=== PATIENT | male | born 1955 | race Hispanic/Latino ===

== ENCOUNTER 2018-12-07 11:29 | Emergency (ER) | payer BC ==
[2018-12-07 11:40] VITALS: BP 145/89
--- NOTE | 2018-12-07 11:44 | Event Note ---
ED Screening Note Date of service: 12/07/18 Time: 11:40 ED Screening Note: 63 y o male presents with urinary symptoms x 2-3 days This initial assessment/diagnostic orders/clinical plan/treatment(s) is/are subject to change based on patients health status, clinical progression and re-assessment by fellow clinical providers in the ED. Further treatment and workup at subsequent clinical providers discretion. Patient/guardian urged not to elope from the ED as their condition may be serious if not clinically assessed and managed. Initial orders include: cbc,bmp, ua
[2018-12-07 12:10] LABS: Basophils % (Auto) 0.5 % (0.0-1.8); Eosinophils % (Auto) 0.2 % (0.0-4.3); Hematocrit 45.8 % (35.5-45.6); Hemoglobin 16.2 gm/dl (11.8-15.2); Lymphocytes # (Auto) 1.2 K/mm3 (1.2-5.4); Lymphocytes % (Auto) 14.1 % (13.4-35.0); Mean Corpuscular HGB Conc 35 % (32-34); Mean Corpuscular Volume 91 fl (84-94); Monocytes # (Auto) 1.1 K/mm3 (0.0-0.8); Monocytes % (Auto) 13.2 % (0.0-7.3); Platelet Count 272 K/mm3 (140-440); Red Blood Count 5.07 M/mm3 (3.65-5.03)
[2018-12-07 12:20] LABS: BUN/Creatinine Ratio 18; Blood Urea Nitrogen 11 mg/dL (9-20); Calcium 9.3 mg/dL (8.4-10.2); Hemolysis Index 6
[2018-12-07] MEDS ORDERED: TYLENOL PO ONE (12:37)
--- NOTE | 2018-12-07 12:41 | Emergency Department Report ---
ED Male HPI - General Chief complaint: Urogenital-Male Stated complaint: UTI/FEVER/BODY ACHE Time Seen by Provider: 12/07/18 11:39 Source: patient Mode of arrival: Ambulatory Limitations: No Limitations - History of Present Illness Initial comments: 63-year-old male [employer] employee presents to the hospital with complains of fever and dysuria. Patient had similar symptoms 2 weeks ago but symptoms resolved without treatment. Patient complains of dysuria, frequency, malodorous urine, and intermittent chills and fever. Patient denies cough, nausea, vomiting, back pain, abdominal pain, or gross hematuria. - Related Data Home Medications Medication Instructions Recorded Confirmed Last Taken metFORMIN [Glucophage] 500 mg PO BID 02/02/16 02/02/16 02/02/16 Previous Rx's Medication Instructions Recorded Last Taken Type Aspirin 81 mg PO QDAY #30 tablet 02/04/16 Unknown Rx Metoprolol [Lopressor TAB] 12.5 mg PO BID #60 tablet 02/04/16 Unknown Rx Nitrofurantoin [place]/M-Cryst 100 mg PO Q12HR #14 capsule 12/07/18 Unknown Rx [Macrobid CAP] Allergies Allergy/AdvReac Type Severity Reaction Status Date / Time No Known Allergies Allergy Verified 02/02/16 10:15 ED Review of Systems ROS: Stated complaint: UTI/FEVER/BODY ACHE Other details as noted in HPI Comment: All other systems reviewed and negative ED Past Medical Hx - Past Medical History Previous Medical History?: Yes Hx Congestive Heart Failure: No Hx Diabetes: Yes (PO meds) Hx Asthma: No Hx COPD: No Hx HIV: No Additional medical history: Heart palpitations "30 yrs ago" - Surgical History Past Surgical History?: No Additional Surgical History: tonsillectomy 1958 - Social History Smoking Status: Never Smoker - Medications Home Medications: Home Medications Medication Instructions Recorded Confirmed Last Taken Type metFORMIN [Glucophage] 500 mg PO BID 02/02/16 02/02/16 02/02/16 History Aspirin 81 mg PO QDAY #30 tablet 02/04/16 Unknown Rx Metoprolol [Lopressor TAB] 12.5 mg PO BID #60 tablet 02/04/16 Unknown Rx Nitrofurantoin [place]/M-Cryst 100 mg PO Q12HR #14 capsule 12/07/18 Unknown Rx [Macrobid CAP] ED Physical Exam - General Limitations: No Limitations - Other Other exam information: Normal: No acute distress Head: Atraumatic Eyes: Normal appearance ENT: Moist mucous membranes Neck: Normal appearance Chest: Clear to auscultation bilaterally, no wheezes, rales, crackles Cardiovascular: Regular rate and rhythm Abdomen: Soft, nontender, nondistended, no rebound or guarding, normal bowel sounds Back: Normal inspection , no CVA tenderness Extremity: Normal appearance, full range of motion Neuro: Alert and oriented 3, speech normal, no gross motor sensory deficit Psych: Appropriate Skin: No rash ED Course Vital Signs 12/07/18 12/07/18 11:37 12:37 Temperature 100.1 F H Pulse Rate 91 H Respiratory 16 Rate Blood Pressure 145/89 O2 Sat by Pulse 96 Oximetry ED Medical Decision Making - Lab Data Result diagrams: 12/07/18 11:53 12/07/18 11:53 Lab Results 12/07/18 12/07/18 12/07/18 Range/Units 11:53 11:53 Unknown WBC 8.4 (4.5-11.0) K/mm3 RBC 5.07 H (3.65-5.03) M/mm3 Hgb 16.2 H (11.8-15.2) gm/dl Hct 45.8 H (35.5-45.6) % MCV 91 (84-94) fl MCH 32 (28-32) pg MCHC 35 H (32-34) % RDW 13.0 L (13.2-15.2) % Plt Count 272 (140-440) K/mm3 Lymph % (Auto) 14.1 (13.4-35.0) % [place] % (Auto) 13.2 H (0.0-7.3) % Eos % (Auto) 0.2 (0.0-4.3) % Baso % (Auto) 0.5 (0.0-1.8) % Lymph # 1.2 (1.2-5.4) K/mm3 [place] # 1.1 H (0.0-0.8) K/mm3 Eos # 0.0 (0.0-0.4) K/mm3 Baso # 0.0 (0.0-0.1) K/mm3 Seg Neutrophils % 72.0 H (40.0-70.0) % Seg Neutrophils # 6.1 (1.8-7.7) K/mm3 Sodium 130 L (137-145) mmol/L Potassium 4.3 (3.6-5.0) mmol/L Chloride 89.4 L (98-107) mmol/L Carbon Dioxide 27 (22-30) mmol/L Anion Gap 18 mmol/L BUN 11 (9-20) mg/dL Creatinine 0.6 L (0.8-1.5) mg/dL Estimated GFR > 60 ml/min BUN/Creatinine Ratio 18 % Glucose 275 H (75-100) mg/dL Calcium 9.3 (8.4-10.2) mg/dL Urine Color Yellow (Yellow) Urine Turbidity Turbid (Clear) Urine pH 5.0 (5.0-7.0) Ur Specific [place] 1.018 (1.003-1.030) Urine Protein 100 mg/dl (Negative) mg/dL Urine Glucose (UA) 150 (Negative) mg/dL Urine Ketones 20 (Negative) mg/dL Urine Blood Sm (Negative) Urine Nitrite Neg (Negative) Urine Bilirubin Neg (Negative) Urine Urobilinogen 2.0 (<2.0) mg/dL Ur Leukocyte Esterase Mod (Negative) Urine WBC (Auto) > 182.0 H (0.0-6.0) /HPF Urine RBC (Auto) 7.0 (0.0-6.0) /HPF Urine WBC Clumps 3+ /HPF Urine Mucus 1+ /HPF - Medical Decision Making + uti no signs of sepsis tolerating po macrobid and tylenol given in ED f/u advised - Differential Diagnosis UTI, pyelonephritis, viral syndrome Critical Care Time: No Critical care attestation.: If time is entered above; I have spent that time in minutes in the direct care of this critically ill patient, excluding procedure time. ED Disposition Clinical Impression: UTI (urinary tract infection) Disposition: DC-01 TO HOME OR SELFCARE Is pt being admited?: No Does the pt Need Aspirin: No Condition: Stable Instructions: Urinary Tract Infection in Men (ED) Additional Instructions: Take your medications as prescribed. Follow-up with your doctor or the clinic/doctor provided. Return if symptoms worsen. Take Motrin or Tylenol as needed for fever. Prescriptions: Nitrofurantoin [place]/M-Cryst [Macrobid CAP] 100 mg PO Q12HR #14 capsule Referrals: JESS VARELA MD [Primary Care Provider] - 3-5 Days Time of Disposition: 13:36
[2018-12-07 12:50] LABS: Bilirubin,Urine NEG (Negative); Blood,Urine SM (Negative); Color,Urine Yellow (Yellow); Mucus,Urine 1+ /HPF
[2018-12-07 12:52] LABS: WBC,Urine > 182.0 /HPF (0.0-6.0)
[2018-12-07] MEDS ORDERED: ROCEPHIN IM ONE (13:32)
[2018-12-07] MEDS ORDERED: XYLOCAINE 1% MPF 5 mL INFILTRATI ONE (13:32)
[2018-12-07] MEDS ORDERED: MACROBID PO ONE (13:33)
== END 2018-12-07 14:23 | disposition home or self-care (01) ==
LOC: ED 11:29
DX: N39.0 Urinary tract infection, site not specified (principal)
CPT/HCPCS: 36415; 80048; 81001; 85025

== ENCOUNTER 2019-05-20 14:06 | Outpatient (CLI) | payer BC ==
[2019-05-20 14:29] LABS: Basophils % (Auto) 0.4 % (0.0-1.8); Eosinophils % (Auto) 0.8 % (0.0-4.3); Hematocrit 44.5 % (35.5-45.6); Hemoglobin 15.5 gm/dl (11.8-15.2); Lymphocytes # (Auto) 1.7 K/mm3 (1.2-5.4); Lymphocytes % (Auto) 29.9 % (13.4-35.0); Mean Corpuscular HGB Conc 35 % (32-34); Mean Corpuscular Volume 92 fl (84-94); Monocytes # (Auto) 0.5 K/mm3 (0.0-0.8); Monocytes % (Auto) 7.9 % (0.0-7.3); Platelet Count 217 K/mm3 (140-440); Red Blood Count 4.86 M/mm3 (3.65-5.03); Red Cell Distribution Width 13.8 % (13.2-15.2)
[2019-05-20 14:40] LABS: Creatinine,Urine 144.8 mg/dL (0.1-20.0); Microalbumin/Creatinine Ratio 13.8 ug/mg
[2019-05-20 14:53] LABS: Alanine Aminotransferase 21 units/L (7-56); Albumin 4.2 g/dL (3.9-5); BUN/Creatinine Ratio 18; Blood Urea Nitrogen 14 mg/dL (9-20); Calcium 9.3 mg/dL (8.4-10.2); Hemolysis Index 6; LDL Cholesterol,Direct 118 mg/dL (50-130)
[2019-05-20 15:04] LABS: Chol/HDL Ratio 4.77 %; HDL Cholesterol 36 mg/dL (40-59)
== END 2019-05-20 14:07 | disposition home or self-care (01) ==
LOC: LAB 14:06
PROVIDERS: ATTEND Internal Medicine
DX: Z12.5 Encounter for screening for malignant neoplasm of prostate (principal); E11.69 Type 2 diabetes mellitus with other specified complication; E78.5 Hyperlipidemia, unspecified
CPT/HCPCS: 36415; 80053; 80061; 82043; 84153; 85025

== ENCOUNTER 2019-05-22 15:21 | Outpatient (CLI) | payer BC ==
--- NOTE | 2019-05-22 17:27 | Vascular Lab Report ---
"DUPLEX DOPPLER ULTRASOUND CAROTID, BILATERAL INDICATION: EMBOLIC EVALUATION/ VISUAL DISTURBANCE. FINDINGS: RIGHT CAROTID: No significant atherosclerotic plaque. Right CCA velocity: 95 cm/sec. Right ICA peak systolic velocity: 66 cm/sec. ICA/CCA PSV Ratio: 0.7. Right Vertebral Artery: Antegrade flow. LEFT CAROTID: No significant atherosclerotic plaque. Left CCA velocity: 124 cm/sec. Left ICA peak systolic velocity: 93 cm/sec. ICA/CCA PSV Ratio: 0.9. Left Vertebral Artery: Antegrade flow. IMPRESSION: 1. Right Internal Carotid Artery: Less than 50% diameter stenosis. 2. Left Internal Carotid Artery: Less than 50% diameter stenosis. Velocity criteria are extrapolated from diameter data as defined by the Society of Radiologists in Ul trasound Consensus Conference, Radiology 2003; 229;340-346. Degree of Stenosis (%) || ICA PSV (cm/sec) || Plaque estimate (%) || ICA/CCA PSV Ratio Normal <125 None <2.0 <50 <125 <50 <2.0 50-69 125-230 50 2.0-4.0 70 but less than 100 >230 50 >4.0 Near occlusion High, low, or none visible variable Total occlusion None visible; no lumen N/A Signer Name: Nasir South MD Signed: 05/22/2019 5:23 PM Workstation Name: [id number]
== END 2019-05-22 15:22 | disposition home or self-care (01) ==
LOC: VAS 15:21
PROVIDERS: ATTEND Ophthalmology
DX: H34.8110 Central retinal vein occlusion, right eye, with macular edema (principal)
CPT/HCPCS: 93880

== ENCOUNTER 2020-05-21 15:58 | Outpatient (CLI) | payer BC ==
[2020-05-21 16:36] LABS: Creatinine,Urine 214.8 mg/dL (0.1-20.0)
[2020-05-21 16:38] LABS: Microalbumin/Creatinine Ratio 12.5 ug/mg
[2020-05-21 16:43] LABS: Alanine Aminotransferase 19 units/L (7-56); Albumin 4.4 g/dL (3.9-5); Blood Urea Nitrogen 13 mg/dL (9-20); Calcium 9.2 mg/dL (8.4-10.2); Chol/HDL Ratio 4.83 %; HDL Cholesterol 37 mg/dL (40-59); Hemolysis Index 5; LDL Cholesterol,Direct 114 mg/dL (50-130)
[2020-05-21 16:44] LABS: BUN/Creatinine Ratio 22
== END 2020-05-21 15:59 | disposition home or self-care (01) ==
LOC: LAB 15:58
PROVIDERS: ATTEND Internal Medicine
DX: Z12.5 Encounter for screening for malignant neoplasm of prostate (principal); E11.69 Type 2 diabetes mellitus with other specified complication; E78.5 Hyperlipidemia, unspecified
CPT/HCPCS: 36415; 80053; 80061; 82043; 83036; 84153

== ENCOUNTER 2020-08-10 07:09 | Day surgery (SDC) | payer BC ==
[~2020-08-10 07:09] MED LIST: SODIUM CHLORIDE 0.9% 1000 ML 1,000 ML IV SCH
--- NOTE | 2020-08-10 08:07 | Anesthesia Consultation ---
Anesthesia Consult and Med Hx Date of service: 08/10/20 - Airway Anesthetic Teeth Evaluation: Good ROM Head & Neck: Adequate Mental/Hyoid Distance: Adequate Mallampati Class: Class III Intubation Access Assessment: Possibly Difficult - Pulmonary Exam CTA: Yes - Cardiac Exam Cardiac Exam: RRR - Pre-Operative Health Status ASA Pre-Surgery Classification: ASA3 Proposed Anesthetic Plan: MAC - Pulmonary Hx Sleep Apnea: Yes (cpap) - Cardiovascular System Hx Hypertension: Yes Hx Cardia Arrhythmia: Yes (afib s/p cardioversion 2019, vtach episode 30 years ago ) - Central Nervous System CVA: Yes (Eye stroke, right eye vision improved ) - Endocrine Hx Non-Insulin Dependent Diabetes: Yes - Other Systems Hx Obesity: Yes
--- NOTE | 2020-08-10 08:08 | Anesthesia Day of Surgery ---
Anesthesia Day of Surgery - Day of Surgery Patient Examined: Yes Patient H&P Reviewed: Yes Patient is NPO: Yes
[2020-08-10] MEDS ORDERED: LIDOCAINE MPF (2%) 20 MG/1 ML VIAL 5 ML ONE (09:03)
[2020-08-10] MEDS ORDERED: propofoL 200 MG/20 ML VIAL IV ONE ×2 (09:03)
--- NOTE | 2020-08-10 09:24 | Short Stay Summary ---
Short Stay Documentation Date of service: 08/10/20 Narrative H&P: The patient presents for routine screening colonoscopy. No prior studies. Average risk profile. - History H&P: obtained from office - Allergies and Medications Current Medications: Allergies No Known Allergies Allergy (Verified 02/02/16 10:15) Home Medications Medication Instructions Recorded Confirmed Last Taken Type metFORMIN [Glucophage] 500 mg PO BID 02/02/16 02/02/16 02/02/16 History Aspirin 81 mg PO QDAY #30 tablet 02/04/16 Unknown Rx Metoprolol [Lopressor TAB] 12.5 mg PO BID #60 tablet 02/04/16 Unknown Rx Nitrofurantoin [place]/M-Cryst 100 mg PO Q12HR #14 capsule 12/07/18 Unknown Rx [Macrobid CAP] Active Medications Sodium Chloride (Nacl 0.9% 1000 Ml) 1,000 mls @ 50 mls/hr IV DIRECT DIVYA Last Admin: 08/10/20 08:30 Dose: 50 mls/hr Documented by: - Brief post op/procedure progress note Date of procedure: 08/10/20 Findings: see dictation Estimated blood loss: none Pathology: list (sigmoid colon polyp) Specimen disposition: to lab Condition: stable - Disposition Condition at discharge: Good Disposition: DC-01 TO HOME OR SELFCARE - Discharge Diagnoses (1) Colon cancer screening Status: Acute Short Stay Discharge Plan Activity: other (no driving for 24 hours) Weight Bearing Status: Full Weight Bearing Diet: regular Follow up with: JESS VARELA MD [Primary Care Provider] - 7 Days
[2020-08-10 10:01] VITALS: BP 152/76
--- NOTE | 2020-08-10 11:03 | Post Anesthesia Evaluation ---
- Post Anesthesia Evaluation Patient Participated: Yes Airway Patent: Yes Stable Respiratory Function: Yes Nausea/Vomiting: No Temp > 96.8F: Yes Pain Manageable: Yes Adequeate Hydration: Yes Anesthesia Complications: No
== END 2020-08-10 07:10 | disposition home or self-care (01) ==
LOC: GIO 07:09
PROVIDERS: ATTEND Internal Medicine Gastroenterology
DX: Z12.11 Encounter for screening for malignant neoplasm of colon (principal); K63.5 Polyp of colon; I48.92 Unspecified atrial flutter; I10 Essential (primary) hypertension; E11.9 Type 2 diabetes mellitus without complications; G47.30 Sleep apnea, unspecified; E66.9 Obesity, unspecified; Z79.84 Long term (current) use of oral hypoglycemic drugs; Z98.890 Other specified postprocedural states; Z79.82 Long term (current) use of aspirin; Z79.899 Other long term (current) drug therapy; Z86.73 Personal history of transient ischemic attack (TIA), and cerebral infarction without residual deficits; Z68.37 Body mass index [BMI] 37.0-37.9, adult
CPT/HCPCS: 45385; 82962; 88305; J2704; J7030